=== PATIENT | male | born 2000 | race Two or more races ===

== ENCOUNTER 2019-01-08 06:52 | Emergency (ER) | payer SELFPAY ==
[~2019-01-08] VITALS: Ht 175.3 cm; Wt 57.6 kg
[2019-01-08 07:32] VITALS: BP 124/68
[2019-01-08] MEDS ORDERED: cefTRIAXone SOD 1,000 MG VL IM ONE (08:15)
[2019-01-08] MEDS ORDERED: ACETAMINOPHEN 500 MG TAB PO ONE (08:15)
== END 2019-01-08 08:43 | disposition home or self-care (01) ==
LOC: ER 06:57
DX: J03.90 Acute tonsillitis, unspecified (principal); Z88.1 Allergy status to other antibiotic agents
CPT/HCPCS: 96372; 99283; J0696

== ENCOUNTER 2019-05-27 06:50 | Emergency (ER) | payer BC ==
[~2019-05-27] VITALS: Ht 172.7 cm; Wt 61.2 kg
[2019-05-27 07:29] VITALS: BP 108/60
[2019-05-27] MEDS ORDERED: IBUPROFEN 800 MG TAB PO ONE (08:15)
== END 2019-05-27 08:46 | disposition home or self-care (01) ==
LOC: ER 06:50
DX: J02.9 Acute pharyngitis, unspecified (principal); J06.9 Acute upper respiratory infection, unspecified; Z88.1 Allergy status to other antibiotic agents

== ENCOUNTER 2019-06-28 16:05 | Emergency (ER) | payer BC, MEDICAID ==
[~2019-06-28] VITALS: Ht 175.3 cm; Wt 61.2 kg
[2019-06-28 16:07] VITALS: BP 108/52
[2019-06-28] MEDS ORDERED: IBUPROFEN 600 MG TAB PO ONE (19:15)
== END 2019-06-28 19:21 | disposition home or self-care (01) ==
LOC: ER 16:13
DX: S01.01XA Laceration without foreign body of scalp, initial encounter (principal); Z88.1 Allergy status to other antibiotic agents; W03.XXXA Other fall on same level due to collision with another person, initial encounter; Y93.72 Activity, wrestling; Y92.009 Unspecified place in unspecified non-institutional (private) residence as the place of occurrence of the external cause; Y99.8 Other external cause status
CPT/HCPCS: 12002; 70450